=== PATIENT | female | born 1980 | race Caucasian/White ===

== ENCOUNTER 2025-03-09 03:49 | Emergency (ER) | payer MEDICAID, SELFPAY ==
[2025-03-09 03:50] VITALS: BMI 24.7
[2025-03-09 04:15] VITALS: BP 149/90; PULSE 113; RESP 19; TEMP 36.6; O2SAT 94
--- NOTE | 2025-03-09 04:18 | XR_ITS ---
EXAMINATION: AP chest single view TECHNIQUE: AP portable upright chest single view Date and time: March 09, 2025 0532 hours, comparison October 14, 2006 INDICATION: Shortness of breath today. FINDINGS: Normal heart size Lungs are clear. Osseous structures are intact IMPRESSION: No active disease
--- NOTE | 2025-03-09 04:20 | EKG_ITS ---
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
--- NOTE | 2025-03-09 04:21 | PD.EDRME ---
Rapid Medical Screening Exam RME Arrival date/time: 03/09/25 03:49 Chief Complaint: Shortness of Breath/Dyspnea Vital signs: Vital Signs Temperature 98 F 03/09/25 04:15 Pulse Rate 113 H 03/09/25 04:15 Respiratory Rate 19 03/09/25 04:15 Blood Pressure 149/90 H 03/09/25 04:15 Pulse Oximetry (%) 94 L 03/09/25 04:15 Oxygen Delivery Method Room Air 03/09/25 04:15 RME Narrative: 45-year-old female with past medical history of smoking presents to the ER complaining of shortness of breath and wheezing for the past 3 weeks worse tonight. Denies any nausea, vomiting. I briefly performed a screening evaluation to initiate work-up and expedite care. Complete history, physical exam, and plan of care is deferred to the provider in the main ED. Exam: Accessory muscle use, inspiratory and expiratory wheezing, poor air movement Clinical Impression: Acute bronchospasm
[2025-03-09 04:33] VITALS: PULSE 109
[2025-03-09] MEDS: ALBUTEROL RT 2.5 MG/0.5 ML NEBU INH (04:33)
[2025-03-09 04:34] VITALS: PULSE 109
[2025-03-09] MEDS: IPRATROPIUM RT 0.5 MG/ 2.5 ML NEBU INH (04:34)
[2025-03-09] MEDS: ALBUTEROL RT 2.5 MG/0.5 ML NEBU 10 MG INH (04:34)
[2025-03-09] MEDS: SODIUM CHLORIDE RT SOL 0.9% 3 ML NEBU INH (04:35)
[2025-03-09 04:40] VITALS: PULSE 102; RESP 23; O2SAT 100
[2025-03-09] MEDS: MethylPREDNISolone SOD SUCC 62.5 MG/ML 2ML VIAL 125 MG IVP ×2 (05:02→06:26)
[2025-03-09 05:09] LABS: Lactate (Lactic Acid) 1.1 mMol/L (0.4-2.0)
[2025-03-09 05:18] LABS: Basophils # (Auto) 0.1 Thou/mm3 (0.0-0.2); Basophils % (Auto) 1 % (0-2.5); Eosinophils # (Auto) 1.3 Thou/mm3 (0.0-0.5); Eosinophils % (Auto) 12 % (0-10); Hematocrit 41.4 % (36.0-46.0); Hemoglobin 13.8 g/dL (12.0-16.0); Immature Granulocytes Auto 0.03 Thou/mm3 (0.00-0.00); Lymphocytes # (Auto) 2.9 Thou/mm3 (1.0-4.8); Lymphocytes % (Auto) 27 % (10-50); Mean Corpuscular HGB Conc 33.3 g/dl (31.0-37.0); Mean Corpuscular Hemoglobin 30.1 pg (25.0-35.0); Mean Corpuscular Volume 90 fL (80-100); Monocytes # (Auto) 0.9 Thou/mm3 (0.0-0.8); Monocytes % (Auto) 8 % (0-12); Neutrophils # (Auto) 5.7 Thou/mm3 (1.8-7.7); Neutrophils % (Auto) 52 % (37-80); Nucleated Red Blood Cell # 0.00 Thou/mm3 (0.00-0.00); Nucleated Red Blood Cell % 0 /100 WBC (0); Platelet Count 335 Thou/mm3 (140-440); RDW Standard Deviation 48.3 fL (36.4-46.3); Red Blood Count 4.59 Miln/mm3 (4.00-5.20); White Blood Count 10.9 Thou/mm3 (3.6-11.0)
[2025-03-09 05:37] LABS: Alanine Aminotransferase 36 U/L (10-49); Albumin, Serum 4.8 gm/dL (3.5-5.0); Albumin/Globulin Ratio 2.5 (1.2-2.2); Alkaline Phosphatase 119 U/L (46-116); Anion Gap 12 (7-16); Aspartate Amino Transferase 48 U/L (0-34); BUN/Creatinine Ratio 17 Ratio (12-20); Bilirubin,Total 0.7 mg/dL (0.3-1.2); Blood Urea Nitrogen 12 mg/dL (9-23); Calcium 9.2 mg/dL (8.3-10.6); Calcium (Corrected) 9.2 mg/dL (8.5-10.1); Carbon Dioxide 22.6 mMol/L (20.0-31.0); Chloride 109 mMol/L (98-107); Creatinine (Component) 0.7 mg/dL (0.6-1.3); Estimated Creatinine Clearance 92.0 mL/min (>60); Globulin 1.9 gm/dL (2.3-3.5); Glucose 100 mg/dL (74-106); Osmolality,Calculated 286 (275-295); Potassium 3.8 mMol/L (3.4-5.1); Sodium 144 mMol/L (136-145); Total Protein 6.7 gm/dL (5.7-8.2); eGFR > 60 See Note
[2025-03-09 05:45] LABS: HCG,Qualitative Serum Negative
[2025-03-09 06:14] VITALS: BP 136/94; PULSE 98; RESP 20; TEMP 36.6; O2SAT 99
[2025-03-09 06:22] LABS: Influenza A Ag Negative; Influenza B Ag Negative
[2025-03-09] MEDS: Magnesium Sulfate 2 GM Ivpb 2 GM/50 ML BAG IV (06:26)
[2025-03-09 06:50] LABS: B-Type Natriuretic Peptide < 20 pg/mL (0-100)
[2025-03-09 06:51] LABS: D-Dimer < 250 ng/mL (<600)
[2025-03-09 06:55] LABS: Bilirubin,Direct 0.2 mg/dL (0.0-0.3); Magnesium 1.8 mg/dL (1.6-2.6); Thyroid Stimulating Hormone 1.61 uIU/mL (0.55-4.78); Troponin I < 0.002 ng/mL (0.0-0.045)
--- NOTE | 2025-03-09 07:10 | EDNOTE_ITS ---
ED SOB =RME/HPI General Chief Complaint: Shortness of Breath/Dyspnea Stated Complaint: TROUBLE BREATHING Time Seen by Provider: 03/09/25 05:57 Arrival date/time: 03/09/25 03:49 RME / HPI RME / HPI Narrative: 45-year-old female with past medical history of smoking presents to the ER complaining of shortness of breath and wheezing for the past 3 weeks worse tonight. Denies any nausea, vomiting. I briefly performed a screening evaluati on to initiate work-up and expedite care. Complete history, physical exam, and plan of care is deferred to the provider in the main ED. Exam: Accessory muscle use, inspiratory and expiratory wheezing, poor air movement Impression: Acute bronchospasm Related Data Home Medications ?Medication ?Instructions ?Recorded ?Confirmed paroxetine HCl 10 mg tablet (Paxil) 10 mg PO QAM #0 ta bs 07/26/13 Previous Rx's ?Medication ?Instructions ?Recorded naproxen 500 mg tablet 500 mg PO BID PRN pain #30 t abs 07/20/23 albuterol sulfate 90 mcg/actuation 2 puff inhalation Q 6H PRN 03/09/25 aerosol inhaler shortness of breath or wheez ing #8.5 grams azithromycin 500 mg tablet 500 mg PO QDAY 3 days #3 ta bs 03/09/25 (Zithromax TRI-LUCIANO) prednisone 50 mg tablet 50 mg PO BID 3 days #6 tabs 03/09/25 Allergies Allergy/AdvReac Type Severity Reaction Status Date / Time No Known Drug Allergies Allergy Verified 03/09/25 03:50 Course Quality Measures none Orders Category Date Time Status Bedside COVID-19 Antigen Test NOW Care 03/09/25 04:42 Completed EKG (ED ONLY) *Do not use* NOW Care 03/09/25 04:20 Completed Insert IV NOW Care 03/09/25 04:20 Completed EKG (ED Only) Stat Exams 03/09/25 04:20 Draft XR chest 1V Stat Exams 03/09/25 04:18 Completed ABG [Arterial Blood Gas] Stat Lab 03/09/25 07:39 Ordered BNP [B-Type Natriuretic Peptide] Stat Lab 03/09/25 06:20 Completed Bilirubin,Direct Stat Lab 03/09/25 06:20 Completed Blood Culture (Lab) Stat Lab 03/09/25 04:45 Received CBC Stat Lab 03/09/25 05:04 Completed CMP [Comprehensive Metabolic Panel] Stat Lab 03/09/25 05:04 Completed D-Dimer Stat Lab 03/09/25 06:20 Completed FLU A&B [Influenza A & B Rapid Panel] Stat Lab 03/09/25 07:39 Ordered HCG,Qualitative Serum Stat Lab 03/09/25 05:04 Completed Influenza A & B Rapid Panel Stat Lab 03/09/25 04:51 Completed Lactic Acid [Lactate (Lactic Acid)] Stat Lab 03/09/25 05:04 Completed Magnesium Stat Lab 03/09/25 06:20 Completed TSH [Thyroid Stimulating Hormone] Stat Lab 03/09/25 06:20 Completed Troponin I Stat Lab 03/09/25 06:20 Completed UA, C/S IF [Urinalysis, C/S if Indicated] Stat Lab 03/09/25 07:30 Completed ALBUTEROL RT 0.5ml [Proventil Rt 0.5ml] Med 03/09/25 04:29 Discontinued 10 mg INH X1 ONE ALBUTEROL RT 0.5ml [Proventil Rt 0.5ml] Med 03/09/25 04:18 Discontinued 2.5 mg INH X1 ONE DiphenhydrAMINE INJ [Benadryl Inj] Med 03/09/25 06:04 Discontinued 50 mg IVP X1 STA Ipratropium [place] Rt Kirsten [Atrovent Rt Kirsten] Med 03/09/25 04:18 Discontinued 0.5 mg INH X1 ONE Magnesium Sulfate 2 GM Ivpb [Magnesium Sulfate Ivpb] Med 03/09/25 06:04 Discontinued 2 gm in 50 ml IV X1 MethylPREDNISolone.* [SoluMEDROL Inj] Med 03/09/25 04:18 Discontinued 125 mg IVP X1 ONE MethylPREDNISolone.* [SoluMEDROL Inj] Med 03/09/25 06:04 Discontinued 125 mg IVP X1 ONE Sodium Chloride Rt Kirsten 0.9% [NS Rt Kirsten 0.9%] Med 03/09/25 04:18 Discontinued 3 ml INH PRN PRN Sodium Chloride Rt Kirsten 0.9% [NS Rt Kirsten 0.9%] Med 03/09/25 04:18 Discontinued 3 ml INH PRN PRN Sodium Chloride Rt Kirsten 0.9% [NS Rt Kirsten 0.9%] Med 03/09/25 04:18 Discontinued 3 ml INH PRN PRN Sodium Chloride Rt Kirsten 0.9% [NS Rt Kirsten 0.9%] Med 03/09/25 04:29 Discontinued 3 ml INH PRN PRN Vital Signs Vital signs: Vital Signs Temperature 98 F 03/09/25 04:15 Pulse Rate 113 H 03/09/25 04:15 Respiratory Rate 19 03/09/25 04:15 Blood Pressure 149/90 H 03/09/25 04:15 Pulse Oximetry (%) 94 L 03/09/25 04:15 Oxygen Delivery Method Room Air 03/09/25 04:15 Shortness of Breath / Dyspnea MDM Narrative MDM Narrative:: This section includes all my notes and documentations, including HPI, PE, and ED course. Dm Fierro MD HPI: 45-year-old female here with about a week history of worsening cough, productive cough, purulent sputum, and dyspnea. Frequent similar episodes in the past year. Never been diagnosed with asthma or COPD. She continues to smoke. No other complaints. ROS: All negative except as documented in HPI. Physical Exam: General: Alert and oriented. In respiratory distress. Eyes: Conjunctivae and lids clear. ENT: No nasal congestion. Pharynx normal. TM normal bilaterally. Neck: Supple. Heart: RRR. Lungs: In respiratory distress. Severely decreased air movement with diffuse rhonchi. Abdomen: Soft and nontender. Skin: Warm and dry. Neuro: Alert and oriented X 3. I reviewed all diagnostic test results: My interpretation of the EKG is sinus rhythm with no acute ST?T changes. My interpretation of the chest x-ray is NAD. Blood tests and urine tests unremarkable, including negative troponin/D- dimer/BNP. Covid/Influenza negative. At this point, diagnoses include: COPD exacerbation Treatment here included: Solu-Medrol 125 mg X 2 Neb treatments Benadryl 50 mg IV MgSO4 2 gram IV Significant improvement noted. Recommended a trial of outpatient treatment. Based on my best medical judgment, made decision no further evaluation or elin atment indicated at this time. Patient understands and agrees to the discharge instructions customized and printed, see below. Discharge instructions from Dr. Fierro: --After evaluation, your symptoms are due to COPD (see attached handout) and bronchitis. --No physical exertion for 3 days to help rest the lungs. ?No smoking or exposure to smoking or pets or dust or cold or humidity. We really need to stop smoking. --Zithromax to kill the germs causing the bronchitis. --Prednisone to help decrease the swelling in the airways. --Albuterol 2 puffs every 4-6 hours for 3 days to help keep the airways open. Then as needed for cough or shortness of breath. --See a private doctor 03/11/2025 for recheck. Ask for help until you are completely better. Ask for referral to see lung specialist, to make sure there is no other serious underlying lung condition. --Seek immediate medical care with worsening or with any concerns. Dm Fierro MD Patient data External records reviewed:: [facility] previous records Clinical information provided by:: patient Social determinants that could affect healthcare access:: none Patient has the following chronic illnesses:: Current smoker How is presenting disease/condition affected by chronic disease/condition?: exacerbated by Evaluation data The following diagnostics were reviewed and interpreted by me:: lab results, radiology exam(s) and EKG tracing(s) (Sinus rhythm with no acute ST-T changes.) Lab and/or radiology exams considered but not ordered:: None Interpretation Summary: I reviewed all diagnostic test results: My interpretation of the EKG is sinus rhythm with no acute ST?T changes. My interpretation of the chest x-ray is NAD. Blood tests and urine tests unremarkable, including negative troponin/D- dimer/BNP. Covid/Influenza negative. Medications / Prescriptions Medications or Prescriptions considered but not ordered:: None Medication administrations:: Medication Administration History Discontinued Medications Albuterol (Albuterol Rt 2.5 Mg/0.5 Ml Nebu) 2.5 mg INH X1 ONE Stop: 03/09/25 04:19 Last Admin: 03/09/25 04:33 Dose: 2.5 mg Documented By: JOSE Albuterol (Albuterol Rt 2.5 Mg/0.5 Ml Nebu) 10 mg INH X1 ONE Stop: 03/09/25 04:30 Last Admin: 03/09/25 04:34 Dose: 10 mg Documented By: JOSE Diphenhydramine HCl (Diphenhydramine Inj 50 Mg/Ml Vial) 50 mg IVP X1 STA Stop: 03/09/25 06:05 Last Admin: 03/09/25 06:26 Dose: 50 mg Documented By: MAT Magnesium Sulfate (Magnesium Sulfate Ivpb) 2 gm in 50 mls @ 100 mls/hr IV X1 ONE Stop: 03/09/25 06:33 Last Infusion: 03/09/25 06:56 Dose: Infused Documented By: Admin: 03/09/25 06:26 Dose: 100 mls/hr Documented By: MAT Ipratropium Sherman (Ipratropium Rt 0.5 Mg/ 2.5 Ml Nebu) 0.5 mg INH X1 ONE Stop: 03/09/25 04:19 Last Admin: 03/09/25 04:34 Dose: 0.5 mg Documented By: JOSE Methylprednisolone Sodium Succinate (Methylprednisolone Sod Succ 62.5 Mg/Ml 2ml Vial) 125 mg IVP X1 ONE Stop: 03/09/25 04:19 Last Admin: 03/09/25 05:02 Dose: 125 mg Documented By: MAT Methylprednisolone Sodium Succinate (Methylprednisolone Sod Succ 62.5 Mg/Ml 2ml Vial) 125 mg IVP X1 ONE Stop: 03/09/25 06:05 Last Admin: 03/09/25 06:26 Dose: 125 mg Documented By: MAT Sodium Chloride (Sodium Chloride Rt Kirsten 0.9% 3 Ml Nebu) 3 ml INH PRN PRN PRN Reason: SOLN Stop: 04/08/25 04:17 Last Admin: 03/09/25 04:35 Dose: 3 ml Documented By: JOSE Sodium Chloride (Sodium Chloride Rt Kirsten 0.9% 3 Ml Nebu) 3 ml INH PRN PRN PRN Reason: SOLN Stop: 04/08/25 04:17 Sodium Chloride (Sodium Chloride Rt Kirsten 0.9% 3 Ml Nebu) 3 ml INH PRN PRN PRN Reason: SOLN Stop: 04/08/25 04:17 Sodium Chloride (Sodium Chloride Rt Kirsten 0.9% 3 Ml Nebu) 3 ml INH PRN PRN PRN Reason: SOLN Stop: 04/08/25 04:28 Treatment here included: Solu-Medrol 125 mg X 2 Neb treatments Benadryl 50 mg IV MgSO4 2 gram IV Consultations Consultation(s) initiated? (list below): No Diagnosis Shortness of Breath Differential Diagnosis: acute exacerbation of chronic obstructive airways disease, congestive heart failure, community acquired pneumonia, asthma with exacerbation and pulmonary embolism Most likely diagnosis given after review of the tests above:: COPD exacerbation Admission Indicated Admission indicated?: indicated Explain why admission is indicated or not indicated:: With significant improvement and no condition needing emergent intervention, there was no indication for admission. Admission Request Was there a request for admission?: No Disposition Plan Disposition Plan: Discharge Discharge Attestation Discharge Attestation: The patient and all family members were given an opportunity to ask questions and understood the discharge instructions. Discharge instructions specifically effects, indications for sooner follow up or return to the emergency department, and the expected course of current diagnosis. Patient condition: Stable Discharge Plan Plan Patient Disposition: HOME (Self Care) Prescriptions/Referrals Prescriptions/Med Rec: New prednisone 50 mg tablet 50 mg PO BID 3 Days Qty: 6 0RF albuterol sulfate 90 mcg/actuation HFA aerosol inhaler 2 puff inhalation Q6H PRN (Reason: shortness of breath or wheezing) Qty: 8.5 0RF azithromycin [Zithromax TRI-LUCIANO] 500 mg tablet 500 mg PO QDAY 3 Days Qty: 3 0RF No Action paroxetine HCl [Paxil] 10 MG tablet 10 mg PO QAM Qty: 0 naproxen 500 mg tablet 500 mg PO BID PRN (Reason: pain) Qty: 30 0RF Problem List Clinical Impression: COPD (chronic obstructive pulmonary disease), Respiratory infection Patient/Caregiver Discharge Instructions Discharge Activity: activity as tolerated Education Materials: ED Bronchitis, Antibiotics (Child), ED COPD Flare, ED Inhaler Use Additional Instructions: Discharge instructions from Dr. Fierro: --After evaluation, your symptoms are due to COPD (see attached handout) and bronchitis. --No physical exertion for 3 days to help rest the lungs. ?No smoking or exposure to smoking or pets or dust or cold or humidity. We really need to stop smoking. --Zithromax to kill the germs causing the bronchitis. --Prednisone to help decrease the swelling in the airways. --Albuterol 2 puffs every 4-6 hours for 3 days to help keep the airways open. Then as needed for cough or shortness of breath. --See a private doctor 03/11/2025 for recheck. Ask for help until you are completely better. Ask for referral to see lung specialist, to make sure there is no other serious underlying lung condition. --Seek immediate medical care with worsening or with any concerns. Print Language: Bulgarian Stand Alone Forms: [email or web address] Info., Patient Portal Info Letter
[2025-03-09 07:31] VITALS: BP 136/88; PULSE 98; RESP 20; TEMP 36.7; O2SAT 97
[2025-03-09 07:41] LABS: Collection Type, Urine Clean Catch
--- NOTE | 2025-03-09 07:41 | PC.NURSE ---
Report received from pm nurse, patient lying in gurney quietly, alert and oriented x 3, skin warm dry and pink, patient to er with c/o sob and intermittent cough. Patient recieved nebulizer tx and states she is feeling a lot better, patient speaking full sentences, u/a sent, patient denies pain, patient has no other needs at this time, call light within reach.
[2025-03-09 08:00] LABS: Bacteria,Urine Rare; Bilirubin,Urine Negative (Negative); Blood,Urine Negative (Negative); Color,Urine Lt-Yellow (Lt Yel-Yel); Culture Indicated,Urine Not Indicated; Glucose, Urine Negative (Negative); Hyaline Casts,Urine < 1 /hpf (0-1); Ketones,Urine Negative (Negative); Leukocyte Esterase,Urine Positive (Negative); Nitrite,Urine Negative (Negative); PH,Urine 6.5 (5.0-7.0); Protein,Urine Trace (Neg - Trace); RBC,Urine 4 /hpf (0-3); Specific Gravity,Urine 1.026 (1.001-1.035); Squamous Epithelial Cell,Urine 8 /hpf (0-5); Urobilinogen,Urine Negative mg/dL (0.0-1.0); WBC,Urine 5 /hpf (0-5)
[2025-03-09 08:06] LABS: Clarity,Urine Hazy (Clear/Hazy)
== END 2025-03-09 08:19 | disposition home or self-care (01) ==
LOC: SERX 07:45
PROVIDERS: Physician Assistant; Emergency Provider Emergency Medicine
DX: J98.01 Acute bronchospasm (principal); J44.9 Chronic obstructive pulmonary disease, unspecified
CPT/HCPCS: 36415; 36600; 71045; 80053; 81001; 82248; 82803; 83605; 83735; 83880; 84443; 84484; 84703; 85025; 85379; 87040; 87502; 87635; 93005; 94644; 96365; 96375; 96376; 99284; J1200; J2919; J3475; J7644; J7611